=== PATIENT | female | born 1965 | race Caucasian/White ===

== ENCOUNTER 2016-12-21 21:25 | Emergency (ER) | payer MEDICAID ==
[~2016-12-21] VITALS: Ht 175.3 cm; Wt 127.0 kg
[2016-12-22 01:40] VITALS: BP 145/108
[2016-12-22] MEDS ORDERED: HYDROcodone-ACET 10/325MG TAB PO ONE (02:00)
== END 2016-12-22 02:44 | disposition home or self-care (01) ==
LOC: ER 21:52
DX: S52.122A Displaced fracture of head of left radius, initial encounter for closed fracture (principal); J44.9 Chronic obstructive pulmonary disease, unspecified; E07.9 Disorder of thyroid, unspecified; W18.39XA Other fall on same level, initial encounter; Y93.89 Activity, other specified; Y92.89 Other specified places as the place of occurrence of the external cause; Y99.8 Other external cause status
CPT/HCPCS: 29125; 73030; 73080; 73110; 73200

== ENCOUNTER 2017-03-05 16:41 | Emergency (ER) | payer MEDICAID ==
[~2017-03-05] VITALS: Ht 175.3 cm; Wt 133.8 kg
[2017-03-05 16:59] VITALS: BP 135/100
== END 2017-03-05 20:42 | disposition left against medical advice (07) ==
LOC: ER 16:45
DX: M79.602 Pain in left arm (principal); Z53.21 Procedure and treatment not carried out due to patient leaving prior to being seen by health care provider
CPT/HCPCS: 93971

== ENCOUNTER 2022-10-05 18:03 | Inpatient (IN) | payer MEDICAID ==
[~2022-10-05] VITALS: Ht 175.3 cm; Wt 152.9 kg
[2022-10-05] MEDS ORDERED: HYDROmorphone HCL 2 MG/ML VL/or syr IM ONE (18:15)
[2022-10-05 18:48] LABS: Basophils # (auto) 0.1 10 ^3/uL (0-0.2); Basophils % (auto) 0.6 % (0.0-2.0); Eosinophils # (auto) 0 10 ^3/uL (0-0.8); Hematocrit 41.8 % (36.0-46.0); Hemoglobin 13.5 g/dL (12.2-16.2); Lymphocytes # (auto) 1.2 10 ^3/uL (0.4-5.4); Lymphocytes % (auto) 10.1 % (10.0-50.0); Mean Corpuscular Hemoglobin 29.1 pg (28.0-32.0); Mean Corpuscular Hgb Conc. 32.3 g/dL (32.0-36.0); Mean Corpuscular Volume 90.2 fL (80.0-100.0); Monocytes % (auto) 8.3 % (0.0-12.0); Neutrophils # (auto) 9.6 10 ^3/uL (1.6-8.6); Nucleated Red Blood Cells % 0.1 %; Red Blood Cells 4.63 10^6/uL (4.0-5.20); Red Cell Distribution Width 14.3 % (11.8-14.3); White Blood Cell 11.8 10^3/uL (4.4-10.8)
[2022-10-05 19:06] LABS: Albumin 3.3 g/dL (3.4-5.0); Calcium 8.8 mg/dL (8.5-10.1); Magnesium 2.5 mg/dL (1.6-2.6); Potassium 3.8 mmol/L (3.5-5.1)
[2022-10-05 19:09] LABS: BUN/Creatinine Ratio 9.1 (10.0-20.0); Bilirubin, Total 0.7 mg/dL (0.2-1.0); Total Protein 7.3 g/dL (6.4-8.2)
[2022-10-06] MEDS ORDERED: cefTRIAXone 1GM/50ML D5W 50 ML IV ONE
[2022-10-06] MEDS ORDERED: ONDANSETRON HCL 4 MG/2 ML VIAL IV PRN (00:15)
[2022-10-06] MEDS ORDERED: ACETAMINOPHEN 325 MG TAB PO PRN (00:15)
[2022-10-06] MEDS: HYDROcodone-ACET 5/325MG TAB PO PRN ×2 (00:40→14:47)
[2022-10-06] MEDS: SODIUM CHLORIDE 0.9% 1,000 ML IV SCH ×2 (02:15→16:55)
[2022-10-06] MEDS ORDERED: MORPHINE SULFATE INJ 2 MG/ml SYRG IV PRN (02:45)
[2022-10-06] MEDS ORDERED: NITROGLYCERIN 0.4 MG SL TAB SL PRN (02:45)
[2022-10-06 06:42] LABS: Basophils # (auto) 0 10 ^3/uL (0-0.2); Basophils % (auto) 0.2 % (0.0-2.0); Eosinophils # (auto) 0 10 ^3/uL (0-0.8); Hematocrit 40.1 % (36.0-46.0); Hemoglobin 13.4 g/dL (12.2-16.2); Lymphocytes # (auto) 0.6 10 ^3/uL (0.4-5.4); Lymphocytes % (auto) 4.5 % (10.0-50.0); Mean Corpuscular Hemoglobin 29.6 pg (28.0-32.0); Mean Corpuscular Hgb Conc. 33.4 g/dL (32.0-36.0); Mean Corpuscular Volume 88.7 fL (80.0-100.0); Monocytes # (auto) 1.1 10 ^3/uL (0-1.3); Monocytes % (auto) 7.7 % (0.0-12.0); Neutrophils # (auto) 12.3 10 ^3/uL (1.6-8.6); Neutrophils % (auto) 87.6 % (37.0-80.0); Red Blood Cells 4.52 10^6/uL (4.0-5.20); Red Cell Distribution Width 14.4 % (11.8-14.3)
[2022-10-06 06:55] LABS: Potassium 4.4 mmol/L (3.5-5.1)
[2022-10-06 07:03] LABS: Albumin 3.1 g/dL (3.4-5.0); BUN/Creatinine Ratio 11.8 (10.0-20.0); Bilirubin, Total 1.2 mg/dL (0.2-1.0); Calcium 8.5 mg/dL (8.5-10.1); Total Protein 7.1 g/dL (6.4-8.2)
[2022-10-06 08:07] LABS: Urine Bacteria NONE SEEN /hpf (None Seen); Urine Blood 2+ /uL (Negative); Urine Mucus MODERATE (None Seen); Urine Specific Gravity 1.026 (1.001-1.035); Urine WBC 461 /hpf (0 - 5); Urine WBC Clumps PRESENT /hpf (None Seen)
[2022-10-06] MEDS: HYDROmorphone HCL 2 MG/ML VL/or syr IV PRN ×2 (09:20→22:31)
[2022-10-06] MEDS: FAMOTIDINE (10MG/ML) 2ML VL IV SCH (09:31)
[2022-10-06] MEDS ORDERED: IOHEXOL 300 MG/ML 100ML BOTTLE IJ ONE ×2 (12:14→13:46)
[2022-10-06] MEDS: PIPERACILLIN-TAZOB 3.375GM 100 ML IV SCH ×2 (13:13→18:27)
[2022-10-06] MEDS ORDERED: cefTRIAXone 1GM/50ML D5W 50 ML IV SCH (21:00)
[2022-10-06 23:47] VITALS: BP 97/82
[2022-10-07] MEDS ORDERED: LEVO75TA6 PO (00:07)
[2022-10-07] MEDS ORDERED: MAGN400T6 PO (00:07)
[2022-10-07] MEDS ORDERED: BUDE1AER5 PO (00:07)
[2022-10-07] MEDS ORDERED: ALBU108A5 PO (00:07)
[2022-10-07] MEDS ORDERED: MELO1TAB56 PO (00:07)
[2022-10-07 01:00] VITALS: BP 97/82
[2022-10-07 05:00] VITALS: BP 141/78
[2022-10-07] MEDS: PIPERACILLIN-TAZOB 3.375GM 100 ML IV SCH ×4 (05:22→19:22)
[2022-10-07] MEDS: HYDROmorphone HCL 2 MG/ML VL/or syr IV PRN ×2 (05:22→18:04)
[2022-10-07 05:37] LABS: Basophils # (auto) 0.1 10 ^3/uL (0-0.2); Basophils % (auto) 0.5 % (0.0-2.0); Eosinophils # (auto) 0 10 ^3/uL (0-0.8); Eosinophils % (auto) 0.1 % (0.0-7.0); Hematocrit 36.3 % (36.0-46.0); Hemoglobin 12.4 g/dL (12.2-16.2); Lymphocytes # (auto) 2.1 10 ^3/uL (0.4-5.4); Lymphocytes % (auto) 16.1 % (10.0-50.0); Mean Corpuscular Hemoglobin 29.7 pg (28.0-32.0); Mean Corpuscular Hgb Conc. 34.1 g/dL (32.0-36.0); Mean Corpuscular Volume 87.1 fL (80.0-100.0); Monocytes # (auto) 0.9 10 ^3/uL (0-1.3); Monocytes % (auto) 6.6 % (0.0-12.0); Neutrophils # (auto) 10.1 10 ^3/uL (1.6-8.6); Neutrophils % (auto) 76.7 % (37.0-80.0); Nucleated Red Blood Cells % 0.1 %; Red Blood Cells 4.17 10^6/uL (4.0-5.20); Red Cell Distribution Width 14.4 % (11.8-14.3); White Blood Cell 13.2 10^3/uL (4.4-10.8)
[2022-10-07 05:58] LABS: Albumin 2.8 g/dL (3.4-5.0); Calcium 8.7 mg/dL (8.5-10.1); Potassium 4.2 mmol/L (3.5-5.1)
[2022-10-07 06:03] LABS: BUN/Creatinine Ratio 14.7 (10.0-20.0); Bilirubin, Total 0.8 mg/dL (0.2-1.0); Total Protein 6.6 g/dL (6.4-8.2)
[2022-10-07 08:00] VITALS: BP 106/63
[2022-10-07] MEDS: FAMOTIDINE (10MG/ML) 2ML VL IV SCH (08:55)
[2022-10-07] MEDS: SODIUM CHLORIDE 0.9% 1,000 ML IV SCH (09:35)
[2022-10-07 12:00] VITALS: BP_SYST 122; BP_SYST 146; BP_DIAS 80; BP_DIAS 89
[2022-10-07 16:00] VITALS: BP 121/83
[2022-10-07 22:00] VITALS: BP 112/72
[2022-10-08] MEDS: PIPERACILLIN-TAZOB 3.375GM 100 ML IV SCH ×4 (00:10→18:18)
[2022-10-08] MEDS: HYDROmorphone HCL 2 MG/ML VL/or syr IV PRN ×5 (00:13→23:20)
[2022-10-08] MEDS: SODIUM CHLORIDE 0.9% 1,000 ML IV SCH ×2 (02:15→18:37)
[2022-10-08 05:00] VITALS: BP 132/81
[2022-10-08 08:37] VITALS: BP 134/87
[2022-10-08 13:00] VITALS: BP 119/64
[2022-10-08 16:43] VITALS: BP 130/71
[2022-10-08 20:00] VITALS: BP 103/70
[2022-10-08 22:00] VITALS: BP 103/40
[2022-10-09] MEDS: PIPERACILLIN-TAZOB 3.375GM 100 ML IV SCH ×4 (02:43→19:58)
[2022-10-09 05:00] VITALS: BP 122/87
[2022-10-09] MEDS: LEVOTHYROXINE SODIUM 25 MCG TAB PO SCH (06:07)
[2022-10-09 09:00] VITALS: BP 132/100
[2022-10-09] MEDS: HYDROmorphone HCL 2 MG/ML VL/or syr IV PRN ×3 (10:38→19:57)
[2022-10-09 10:42] LABS: Basophils # (auto) 0 10 ^3/uL (0-0.2); Basophils % (auto) 0.4 % (0.0-2.0); Eosinophils # (auto) 0 10 ^3/uL (0-0.8); Eosinophils % (auto) 0.1 % (0.0-7.0); Hemoglobin 11.7 g/dL (12.2-16.2); Lymphocytes # (auto) 0.9 10 ^3/uL (0.4-5.4); Lymphocytes % (auto) 12.1 % (10.0-50.0); Mean Corpuscular Hemoglobin 29.8 pg (28.0-32.0); Mean Corpuscular Hgb Conc. 33.5 g/dL (32.0-36.0); Mean Corpuscular Volume 88.7 fL (80.0-100.0); Monocytes # (auto) 0.6 10 ^3/uL (0-1.3); Monocytes % (auto) 8.4 % (0.0-12.0); Neutrophils # (auto) 5.7 10 ^3/uL (1.6-8.6); Nucleated Red Blood Cells % 0.1 %; Red Blood Cells 3.94 10^6/uL (4.0-5.20); White Blood Cell 7.2 10^3/uL (4.4-10.8)
[2022-10-09] MEDS: SODIUM CHLORIDE 0.9% 1,000 ML IV SCH (11:22)
[2022-10-09 12:18] LABS: Calcium 8.9 mg/dL (8.5-10.1); Potassium 3.6 mmol/L (3.5-5.1)
[2022-10-09 12:22] LABS: BUN/Creatinine Ratio 10.2 (10.0-20.0)
[2022-10-09 13:00] VITALS: BP 127/78
[2022-10-09 17:00] VITALS: BP 138/95
[2022-10-09 20:00] VITALS: BP 133/78
[2022-10-09 22:00] VITALS: BP 133/78
[2022-10-10] MEDS: PIPERACILLIN-TAZOB 3.375GM 100 ML IV SCH ×3 (01:06→13:05)
[2022-10-10] MEDS: HYDROmorphone HCL 2 MG/ML VL/or syr IV PRN ×2 (01:54→10:50)
[2022-10-10 05:00] VITALS: BP 142/83
[2022-10-10] MEDS: LEVOTHYROXINE SODIUM 25 MCG TAB PO SCH (06:01)
[2022-10-10] MEDS: SODIUM CHLORIDE 0.9% 1,000 ML IV SCH (06:03)
[2022-10-10] MEDS: HYDROcodone-ACET 5/325MG TAB PO PRN ×2 (06:14→13:07)
[2022-10-10 09:00] VITALS: BP 128/92
[2022-10-10] MEDS ORDERED: AUG875T PO ×2 (12:25)
[2022-10-10] MEDS ORDERED: CIPR-173 PO (12:38)
[2022-10-10] MEDS ORDERED: METR500T PO (12:38)
[2022-10-10 13:25] VITALS: BP 136/73
== END 2022-10-10 16:30 | disposition home or self-care (01) | DRG 244 ==
LOC: ER 18:03 → OVERFLOW 10-06 02:43 → CENTRAL 10-06 23:28
PROVIDERS: ADMIT Nurse Practitioner Family; ATTEND Internal Medicine
DX: K57.32 Diverticulitis of large intestine without perforation or abscess without bleeding (principal); N30.90 Cystitis, unspecified without hematuria; D72.829 Elevated white blood cell count, unspecified; E66.01 Morbid (severe) obesity due to excess calories; E03.9 Hypothyroidism, unspecified; J44.9 Chronic obstructive pulmonary disease, unspecified; K64.9 Unspecified hemorrhoids; Z80.0 Family history of malignant neoplasm of digestive organs; Z68.42 Body mass index [BMI] 45.0-49.9, adult
CPT/HCPCS: 36415; 71250; 74176; 74177; 76830; 76856; 80048; 80053; 81001; 83690; 83735; 84484; 85025; 87086; 93005; 96361; 96365; 96372; 96375; G0378; J0696; J2405; J2543; J3490